=== PATIENT | male | born 1965 | race Caucasian/White ===

== ENCOUNTER → 2023-12-24 07:36 | Outpatient (REF) | payer OTHER, SELFPAY | LOC: HWRAD 07:36 | PROVIDERS: ATTENDING PHYSICIAN Internal Medicine Hematology & Oncology; FAMILY PHYSICIAN Internal Medicine | DX: C21.1 Malignant neoplasm of anal canal (principal) | CPT/HCPCS: 71260; 74177; Q9967 ==

== ENCOUNTER 2024-11-05 06:20 | Day surgery (SDC) | payer OTHER, SELFPAY | END 2024-11-05 10:30 | disposition home or self-care (01) | LOC: GI 06:20 | PROVIDERS: ATTENDING PHYSICIAN Surgery | DX: Z12.11 Encounter for screening for malignant neoplasm of colon (principal); Z85.048 Personal history of other malignant neoplasm of rectum, rectosigmoid junction, and anus; K62.4 Stenosis of anus and rectum; D12.2 Benign neoplasm of ascending colon | CPT/HCPCS: 45385; 88305 ==